=== PATIENT | female | born 1995 | race Caucasian/White ===

== ENCOUNTER 2017-11-03 17:05 | Emergency (ER) | payer OTHER ==
[~2017-11-03] VITALS: Ht 165.1 cm; Wt 77.3 kg
[2017-11-03 17:10] VITALS: TEMP 99.2
[2017-11-03] MEDS ORDERED: ENSKYCE 0.15 MG1 TAB (17:50)
[2017-11-03 17:51] LABS: BASO # 0.1 (0.0-0.2); BASO % 0.3 % (0.0-2.0); EOS # 0.1 (0.0-0.7); EOS % 0.4 % (0-4.0); GRAN % 74.8 % (42.2-75.2); HEMATOCRIT 41.7 % (37.0-47.0); HEMOGLOBIN 14.1 g/dl (12.5-16.0); LYMPH % 17.5 % (20.0-51.0); MEAN CELL VOLUME 89 fl (80.0-100.0); MEAN CORPUSCULAR HEMOGLOBIN 30 pg (27.0-31.0); MEAN CORPUSCULAR HGB CONC 34 g/dl (33.0-37.0); MEAN PLATELET VOLUME 11.7 fl (7.4-10.4); MONO # 1.1 (0.1-0.6); MONO % 6.5 % (1.7-9.3); PLATELET COUNT 261 K/mm3 (130-400); RED BLOOD COUNT 4.67 M/mm3 (4.10-5.30); REDCELL DISTRIBUTION WIDTH-CV 12.3 % (11.5-14.5)
[2017-11-03] MEDS ORDERED: RITALIN 20M20 MG/TAB PO (17:51)
[2017-11-03] MEDS ORDERED: KLONOPIN 0.5MG0.5 MG PO (17:51)
[2017-11-03] MEDS ORDERED: MULTI VITAMINS1 TAB PO (17:51)
[2017-11-03] MEDS ORDERED: ZANTAC 300300 MG PO (17:52)
[2017-11-03] MEDS ORDERED: PROBIOTIC FORMU1 CAP PO (17:52)
[2017-11-03] MEDS ORDERED: CARAFATE 1GM1 G (17:53)
[2017-11-03] MEDS ORDERED: ZOFRAN 4MG T4 MG/TAB PO (17:53)
[2017-11-03] MEDS ORDERED: PROTONIX 40MG T40 MG PO (17:53)
[2017-11-03] MEDS ORDERED: NORCO 325 MG-51 TAB PO (17:54)
[2017-11-03] MEDS ORDERED: PHENERGAN 25 TA25 MG PO (17:54)
[2017-11-03 18:07] LABS: ALBUMIN 4.4 gm/dL (3.5-5.0); BILIRUBIN,TOTAL 0.7 mg/dL (0.0-1.0); C-REACTIVE PROTEIN 2.8 mg/dL (0.0-0.9); CALCIUM 10.1 mg/dL (8.4-10.2); CREATININE, serum 0.63 mg/dL (0.52-1.25); TOTAL PROTEIN 8.2 gm/dL (6.4-8.2)
[2017-11-03 20:07] VITALS: BP 149/103; PULSE 103
== END 2017-11-03 20:07 | disposition home or self-care (01) ==
LOC: COL.ER 17:05
PROVIDERS: Emergency Medicine
DX: R10.11 Right upper quadrant pain (principal); Z90.49 Acquired absence of other specified parts of digestive tract
CPT/HCPCS: J1170; J2765; J7030

== ENCOUNTER 2017-11-06 13:54 | Day surgery (SDC) | payer OTHER ==
[~2017-11-06] VITALS: Ht 165.1 cm; Wt 76.5 kg
[~2017-11-06 13:54] MED LIST: CARAFATE 1GM1 G; ENSKYCE 0.15 MG1 TAB; KLONOPIN 0.5MG0.5 MG PO; MULTI VITAMINS1 TAB PO; NORCO 325 MG-51 TAB PO; PHENERGAN 25 TA25 MG PO; PROBIOTIC FORMU1 CAP PO; PROTONIX 40MG T40 MG PO; RITALIN 20M20 MG/TAB PO; ZANTAC 300300 MG PO; ZOFRAN 4MG T4 MG/TAB PO
[2017-11-06] MEDS ORDERED: ALLEGRA ALLERGY60 MG PO (14:19)
[2017-11-06] MEDS ORDERED: AMBIEN 10MG10 MG PO (14:20)
[2017-11-06] MEDS ORDERED: ENSKYCE 0.15 MG1 TAB (14:20)
[2017-11-06 14:32] VITALS: BP 136/91; PULSE 89; TEMP 97.8
[2017-11-06 15:10] VITALS: BP 142/89; PULSE 86; TEMP 97.8
[2017-11-06 15:25] VITALS: BP 139/82; PULSE 93
[2017-11-06 15:40] VITALS: BP 130/88; PULSE 89
== END 2017-11-06 16:16 | disposition home or self-care (01) ==
LOC: SDCO 13:54
DX: K29.30 Chronic superficial gastritis without bleeding (principal); F90.9 Attention-deficit hyperactivity disorder, unspecified type; Z79.899 Other long term (current) drug therapy; Z83.71 Family history of colonic polyps; Z83.79 Family history of other diseases of the digestive system
CPT/HCPCS: J2405; J2704; J3010; J7030

== ENCOUNTER 2018-01-19 18:59 | Inpatient (IN) | payer OTHER ==
[~2018-01-19] VITALS: Ht 165.1 cm; Wt 70.4 kg
[~2018-01-19 18:59] MED LIST changes: +ALLEGRA ALLERGY60 MG PO; +AMBIEN 10MG10 MG PO; +ENSKYCE 0.15 MG1 TAB PO
[2018-01-19 19:47] LABS: BASO # 0.1 (0.0-0.2); BASO % 0.4 % (0.0-2.0); EOS # 0.1 (0.0-0.7); EOS % 0.5 % (0-4.0); GRAN # 8.1 (1.4-6.5); GRAN % 63.6 % (42.2-75.2); HEMOGLOBIN 12.7 g/dl (12.5-16.0); LYMPH # 3.7 (1.2-3.4); MEAN CELL VOLUME 90 fl (80.0-100.0); MEAN CORPUSCULAR HEMOGLOBIN 30 pg (27.0-31.0); MEAN CORPUSCULAR HGB CONC 33 g/dl (33.0-37.0); MEAN PLATELET VOLUME 10.9 fl (7.4-10.4); MONO # 0.8 (0.1-0.6); MONO % 6.3 % (1.7-9.3); PLATELET COUNT 286 K/mm3 (130-400); RED BLOOD COUNT 4.21 M/mm3 (4.10-5.30); REDCELL DISTRIBUTION WIDTH-CV 14.9 % (11.5-14.5)
[2018-01-19 19:58] LABS: ALBUMIN 4.2 gm/dL (3.5-5.0); BILIRUBIN,TOTAL 0.5 mg/dL (0.0-1.0); C-REACTIVE PROTEIN 1.4 mg/dL (0.0-0.9); CALCIUM 9.2 mg/dL (8.4-10.2); CREATININE, serum 0.51 mg/dL (0.52-1.25); POTASSIUM 3.2 mmol/L (3.4-5.0); TOTAL PROTEIN 7.8 gm/dL (6.4-8.2)
[2018-01-19] MEDS ORDERED: LOMOTIL 0.025 M1 TAB PO (20:13)
[2018-01-19] MEDS ORDERED: EPIPEN 2-PAK1 MG/ML IM (20:14)
[2018-01-19] MEDS ORDERED: COLACE 100100 MG/CAP PO (20:14)
[2018-01-19] MEDS ORDERED: ATROVENTNS0.03% NS (20:14)
[2018-01-19] MEDS ORDERED: MEGACE 40MG40 MG/TAB PO (20:15)
[2018-01-19] MEDS ORDERED: FIBER0.52 GM (20:20)
[2018-01-19] MEDS ORDERED: PROAIR HFA0.09 MG/AC IH (20:20)
[2018-01-19 20:26] LABS: THYROID STIMULATING HORMONE 1.1 uIU/mL (0.465-4.680)
[2018-01-19 20:54] LABS: COLLECTION METHOD CLEAN CATCH
[2018-01-19 21:02] LABS: MUCOUS Present /lpf; PH 5 (5-8); SQUAMOUS EPITHELIAL 0-2 /hpf; URINE APPEARANCE Clear; URINE BACTERIA None Seen /hpf; URINE BILIRUBIN Negative (NEGATIVE); URINE BLOOD 1+ (NEGATIVE); URINE COLOR Yellow; URINE GLUCOSE Negative (NEGATIVE); URINE KETONE Trace (NEGATIVE); URINE LEUKOCYTE ESTERASE Negative (NEGATIVE); URINE NITRATE Negative (NEGATIVE); URINE PROTEIN(semi-quant) Negative (NEGATIVE); URINE UROBILINOGEN Negative (NEGATIVE)
[2018-01-19] MEDS ORDERED: NORVASC 5MG5 MG/TAB PO (21:26)
[2018-01-19] MEDS ORDERED: DESYREL 50MG50 MG PO (22:31)
[2018-01-20] VITALS (7 sets, daily range): BP systolic 113–155; BP diastolic 79–99; PULSE 81–108; TEMP 97.5–98.5
[2018-01-20] MEDS ORDERED: TYLENOL 325MG325 MG PO (01:28)
[2018-01-20 05:26] LABS: BASO % 0.3 % (0.0-2.0); EOS # 0.1 (0.0-0.7); EOS % 0.4 % (0-4.0); GRAN # 8.3 (1.4-6.5); HEMATOCRIT 38.8 % (37.0-47.0); HEMOGLOBIN 12.9 g/dl (12.5-16.0); LYMPH # 3.1 (1.2-3.4); LYMPH % 24.7 % (20.0-51.0); MEAN CELL VOLUME 90 fl (80.0-100.0); MEAN CORPUSCULAR HEMOGLOBIN 30 pg (27.0-31.0); MEAN CORPUSCULAR HGB CONC 33 g/dl (33.0-37.0); MEAN PLATELET VOLUME 11.1 fl (7.4-10.4); MONO # 0.9 (0.1-0.6); MONO % 7.3 % (1.7-9.3); PLATELET COUNT 264 K/mm3 (130-400); RED BLOOD COUNT 4.33 M/mm3 (4.10-5.30); REDCELL DISTRIBUTION WIDTH-CV 14.7 % (11.5-14.5)
[2018-01-20 05:33] LABS: CALCIUM 8.7 mg/dL (8.4-10.2); CREATININE, serum 0.41 mg/dL (0.52-1.25); MAGNESIUM 1.9 mg/dL (1.6-2.3); POTASSIUM 3.1 mmol/L (3.4-5.0)
[2018-01-20 10:30] LABS: CREATINE KINASE 20 U/L (30-135)
[2018-01-20 10:45] LABS: AMYLASE 67 U/L (30-110); LIPASE 35 U/L (23-300)
[2018-01-20 11:06] LABS: FERRITIN 113 ng/mL (6-137)
[2018-01-20 17:12] LABS: FOLATE (FOLIC ACID) 14.5 ng/mL (7.0-31.4)
[2018-01-20 17:59] LABS: TRICYCLIC ANTIDEPRESS URINE NEGATIVE
[2018-01-21] VITALS (128 sets, daily range): BP systolic 122–130; BP diastolic 78–88; PULSE 83–101; TEMP 98.4–99.9; O2SAT 90–100
[2018-01-21 05:20] LABS: BASO % 0.4 % (0.0-2.0); EOS # 0.1 (0.0-0.7); EOS % 0.9 % (0-4.0); GRAN % 60.2 % (42.2-75.2); HEMATOCRIT 37.6 % (37.0-47.0); HEMOGLOBIN 12.9 g/dl (12.5-16.0); LYMPH # 2.9 (1.2-3.4); LYMPH % 29.5 % (20.0-51.0); MEAN CELL VOLUME 90 fl (80.0-100.0); MEAN CORPUSCULAR HEMOGLOBIN 31 pg (27.0-31.0); MEAN CORPUSCULAR HGB CONC 34 g/dl (33.0-37.0); MEAN PLATELET VOLUME 11.1 fl (7.4-10.4); MONO # 0.9 (0.1-0.6); MONO % 8.7 % (1.7-9.3); PLATELET COUNT 268 K/mm3 (130-400); REDCELL DISTRIBUTION WIDTH-CV 14.9 % (11.5-14.5)
[2018-01-21 05:33] LABS: ALBUMIN 3.8 gm/dL (3.5-5.0); BILIRUBIN,TOTAL 0.5 mg/dL (0.0-1.0); CALCIUM 9.1 mg/dL (8.4-10.2); CREATININE, serum 0.52 mg/dL (0.52-1.25); POTASSIUM 3.5 mmol/L (3.4-5.0)
[2018-01-21] MEDS ORDERED: CARDURA 1MG1 MG PO (09:17)
[2018-01-21] MEDS ORDERED: LOPRESSOR 550 MG/TAB PO (09:18)
[2018-01-22 14:43] LABS: ALBUMIN FRACTION 4.2 g/dL (2.6-4.5); ALPHA 1 FRACTION 0.5 g/dL (0.3-0.5); ALPHA 1 PERCENT 6.7 % (3.4-8.3); ALPHA 2 FRACTION 1.2 g/dL (0.6-1.2); ALPHA 2 PERCENT 15.1 % (8.4-17.5); BETA 1 FRACTION 0.5 g/dL (0.4-0.6); BETA 2 FRACTION 0.5 g/dL (0.2-0.5); IEPS GAMMA FRACTION 1.1 g/dL (0.4-1.7); IEPS GAMMA PERCENTAGE 13.2 % (8.1-23.0)
[2018-01-23 02:36] LABS: RPR (VDRL) Non-reactive (())
[2018-01-23 15:02] LABS: .COPPER,S 1.92 mcg/mL (())
[2018-01-23 22:18] LABS: C-ANCA 10 U/mL (0-99)
[2018-01-24 07:43] LABS: VITAMIN B1 209 nmol/L (70-180)
[2018-01-24 13:53] LABS: VITAMIN D, 1,25 DIHYDROXY 100 pg/mL (18-78)
== END 2018-01-21 11:17 | disposition home or self-care (01) | DRG 305 ==
LOC: COL.ER 18:59 → ICU 22:16 → COL.ER 22:16 → ICU 22:16
PROVIDERS: Family Medicine; Hospitalist; Internal Medicine; Nurse Practitioner; Psychiatry & Neurology Neurology
DX: I16.0 Hypertensive urgency (principal); I10 Essential (primary) hypertension; E87.6 Hypokalemia; E16.2 Hypoglycemia, unspecified; E28.2 Polycystic ovarian syndrome; R31.9 Hematuria, unspecified
CPT/HCPCS: OP; 99223-AI; 99239; J1170; J2405; J7030; J7050

== ENCOUNTER → 2018-01-23 | Outpatient (CLI) | payer OTHER ==
[~2018-01-23] MED LIST changes: +ATROVENTNS0.03% NS; +CARDURA 1MG1 MG PO; +COLACE 100100 MG/CAP PO; +DESYREL 50MG50 MG PO; +EPIPEN 2-PAK1 MG/ML IM; +FIBER0.52 GM; +LOMOTIL 0.025 M1 TAB PO; +LOPRESSOR 550 MG/TAB PO; +MEGACE 40MG40 MG/TAB PO; +NORVASC 5MG5 MG/TAB PO; +PROAIR HFA0.09 MG/AC IH; +TYLENOL 325MG325 MG PO
== END ==
LOC: COL.LAB 13:26
PROVIDERS: Hospitalist
DX: I16.0 Hypertensive urgency (principal)

== ENCOUNTER → 2019-02-04 | Outpatient (CLI) | payer BC ==
[2019-02-04 12:11] LABS: COLLECTION METHOD CLEAN CATCH
[2019-02-04 12:21] LABS: PH 7 (5-8); SQUAMOUS EPITHELIAL 0-2 /hpf; URINE APPEARANCE Clear; URINE BACTERIA Rare /hpf; URINE BILIRUBIN Negative (NEGATIVE); URINE BLOOD Negative (NEGATIVE); URINE COLOR Straw; URINE GLUCOSE Negative (NEGATIVE); URINE KETONE Negative (NEGATIVE); URINE LEUKOCYTE ESTERASE Trace (NEGATIVE); URINE NITRATE Negative (NEGATIVE); URINE PROTEIN(semi-quant) Negative (NEGATIVE); URINE RBC 0-2 /hpf; URINE UROBILINOGEN Negative (NEGATIVE)
[2019-02-04 12:22] LABS: HEMATOCRIT 42.7 % (37.0-47.0); MEAN CELL VOLUME 91 fl (80.0-100.0); MEAN CORPUSCULAR HEMOGLOBIN 30 pg (27.0-31.0); MEAN CORPUSCULAR HGB CONC 33 g/dl (33.0-37.0); MEAN PLATELET VOLUME 11.2 fl (7.4-10.4); PLATELET COUNT 245 K/mm3 (130-400); RED BLOOD COUNT 4.71 M/mm3 (4.10-5.30); REDCELL DISTRIBUTION WIDTH-CV 13.1 % (11.5-14.5)
[2019-02-04 12:28] LABS: CALCIUM 9.7 mg/dL (8.4-10.2); CREATININE, serum 0.75 (0.52-1.25)
== END ==
LOC: COL.LAB 11:48
DX: Z01.812 Encounter for preprocedural laboratory examination (principal); Z42.1 Encounter for breast reconstruction following mastectomy; Z01.811 Encounter for preprocedural respiratory examination; D05.11 Intraductal carcinoma in situ of right breast; Z80.3 Family history of malignant neoplasm of breast

== ENCOUNTER → 2019-03-21 | Outpatient (CLI) | payer BC | LOC: COL.LAB 14:47 | DX: Z15.01 Genetic susceptibility to malignant neoplasm of breast (principal) ==

== ENCOUNTER → 2019-03-26 | Outpatient (CLI) | payer BC | LOC: COL.RAD 11:41 | DX: L76.34 Postprocedural seroma of skin and subcutaneous tissue following other procedure (principal); Z90.13 Acquired absence of bilateral breasts and nipples ==

== ENCOUNTER → 2019-04-03 | Outpatient (CLI) | payer BC | LOC: COL.RAD 07:36 | DX: R10.9 Unspecified abdominal pain (principal); Z85.3 Personal history of malignant neoplasm of breast; Z90.13 Acquired absence of bilateral breasts and nipples; Z90.49 Acquired absence of other specified parts of digestive tract; Z90.89 Acquired absence of other organs | CPT/HCPCS: Q9967 ==

== ENCOUNTER 2019-04-12 20:51 | Emergency (ER) | payer BC ==
[~2019-04-12] VITALS: Ht 165.1 cm; Wt 75.0 kg
[2019-04-12 20:55] VITALS: TEMP 98.5
[2019-04-12 21:48] LABS: BASO % 0.5 % (0.0-2.0); EOS # 0.1 (0.0-0.7); EOS % 0.9 % (0-4.0); GRAN # 4.4 (1.4-6.5); GRAN % 51.1 % (42.2-75.2); HEMOGLOBIN 13.1 g/dl (12.5-16.0); LYMPH # 3.4 (1.2-3.4); LYMPH % 39.2 % (20.0-51.0); MEAN CELL VOLUME 88 fl (80.0-100.0); MEAN CORPUSCULAR HEMOGLOBIN 29 pg (27.0-31.0); MEAN CORPUSCULAR HGB CONC 33 g/dl (33.0-37.0); MEAN PLATELET VOLUME 10.8 fl (7.4-10.4); MONO # 0.7 (0.1-0.6); PLATELET COUNT 274 K/mm3 (130-400); RED BLOOD COUNT 4.54 M/mm3 (4.10-5.30); REDCELL DISTRIBUTION WIDTH-CV 13.5 % (11.5-14.5)
[2019-04-12 22:08] LABS: ALBUMIN 4.4 gm/dL (3.5-5.0); BILIRUBIN,TOTAL 0.2 mg/dL (0.0-1.0); CALCIUM 9.5 mg/dL (8.4-10.2); CREATININE, serum 0.69 (0.52-1.25); POTASSIUM 4.1 mmol/L (3.4-5.0); TOTAL PROTEIN 7.7 gm/dL (6.4-8.2)
[2019-04-12 23:56] LABS: COLLECTION METHOD CLEAN CATCH
[2019-04-13 00:01] LABS: MUCOUS Present /lpf; PH 5 (5-8); SQUAMOUS EPITHELIAL 0-2 /hpf; URINE APPEARANCE Hazy; URINE BACTERIA None Seen /hpf; URINE BILIRUBIN Negative (NEGATIVE); URINE BLOOD 1+ (NEGATIVE); URINE COLOR Yellow; URINE GLUCOSE Negative (NEGATIVE); URINE KETONE Negative (NEGATIVE); URINE LEUKOCYTE ESTERASE Negative (NEGATIVE); URINE NITRATE Negative (NEGATIVE); URINE PROTEIN(semi-quant) Negative (NEGATIVE); URINE UROBILINOGEN Negative (NEGATIVE)
[2019-04-13] MEDS ORDERED: NORCO 325 MG-51 TAB PO (00:44)
[2019-04-13] MEDS ORDERED: CEPHALEXIN500 M1 PO (00:44)
[2019-04-13] MEDS ORDERED: ZOFRAN ODT4 MG PO (00:44)
[2019-04-13 01:26] VITALS: BP 133/91; PULSE 85
== END 2019-04-13 02:00 | disposition home or self-care (01) ==
LOC: COL.ER 20:51
PROVIDERS: Emergency Medicine; Physician Assistant
DX: R10.11 Right upper quadrant pain (principal); R10.12 Left upper quadrant pain; I10 Essential (primary) hypertension; J45.909 Unspecified asthma, uncomplicated
CPT/HCPCS: J2405; J3010; J7030; Q9967

== ENCOUNTER 2019-04-18 19:12 | Emergency (ER) | payer BC ==
[~2019-04-18] VITALS: Ht 165.1 cm; Wt 75.0 kg
[~2019-04-18 19:12] MED LIST changes: +CEPHALEXIN500 M1 PO; -FIBER0.52 GM; +FIBER0.52 GM PO; +ZOFRAN ODT4 MG PO
[2019-04-18 19:16] VITALS: BP 145/89; TEMP 99.1
[2019-04-18] MEDS ORDERED: COMPAZINE 110 MG/TAB PO (19:29)
[2019-04-18] MEDS ORDERED: LO-ZUMANDIMINE1 EACH PO (19:30)
[2019-04-18] MEDS ORDERED: ULTRAM 50MG TAB50 MG PO (19:31)
[2019-04-18] MEDS ORDERED: VALIUM 5MG T5 MG/TAB PO (19:31)
[2019-04-18] MEDS ORDERED: ROBAXIN 50500 MG/TAB PO (19:32)
[2019-04-18] MEDS ORDERED: TOPAMAX50 MG PO (19:33)
[2019-04-18] MEDS ORDERED: ZANAFLEX CAPSULE2 MG PO (19:34)
[2019-04-18] MEDS ORDERED: CELEBREX 200MG200 MG PO (19:35)
[2019-04-18] MEDS ORDERED: AMBIEN CR 12.12.5 MG PO (19:36)
[2019-04-18] MEDS ORDERED: LINZESS72 MCG PO (19:36)
[2019-04-18] MEDS ORDERED: PRIL40 PO (19:37)
[2019-04-18] MEDS ORDERED: PROAIR HFA0.09 MG/AC IH (19:37)
[2019-04-18] MEDS ORDERED: PAMELOR 10MG10 MG PO (19:37)
[2019-04-18] MEDS ORDERED: NATURAL MAGNES200 MG PO (19:39)
[2019-04-18 20:05] LABS: BASO % 0.5 % (0.0-2.0); EOS # 0.1 (0.0-0.7); EOS % 0.6 % (0-4.0); GRAN % 59.3 % (42.2-75.2); HEMATOCRIT 41.2 % (37.0-47.0); HEMOGLOBIN 13.7 g/dl (12.5-16.0); LYMPH # 2.7 (1.2-3.4); LYMPH % 31.9 % (20.0-51.0); MEAN CELL VOLUME 88 fl (80.0-100.0); MEAN CORPUSCULAR HEMOGLOBIN 29 pg (27.0-31.0); MEAN CORPUSCULAR HGB CONC 33 g/dl (33.0-37.0); MEAN PLATELET VOLUME 10.7 fl (7.4-10.4); MONO # 0.6 (0.1-0.6); MONO % 7.3 % (1.7-9.3); PLATELET COUNT 283 K/mm3 (130-400); RED BLOOD COUNT 4.68 M/mm3 (4.10-5.30); REDCELL DISTRIBUTION WIDTH-CV 13.4 % (11.5-14.5)
[2019-04-18 20:15] LABS: ALBUMIN 4.6 gm/dL (3.5-5.0); BILIRUBIN,TOTAL 0.2 mg/dL (0.0-1.0); C-REACTIVE PROTEIN 0.9 mg/dL (0.0-0.9); CALCIUM 9.2 mg/dL (8.4-10.2); CREATININE, serum 0.68 (0.52-1.25); POTASSIUM 3.9 mmol/L (3.4-5.0); TOTAL PROTEIN 8.1 gm/dL (6.4-8.2)
[2019-04-18 21:25] VITALS: PULSE 69
== END 2019-04-18 21:25 | disposition home or self-care (01) ==
LOC: COL.ER 19:12
PROVIDERS: Emergency Medicine
DX: G89.29 Other chronic pain (principal); R10.9 Unspecified abdominal pain; G43.909 Migraine, unspecified, not intractable, without status migrainosus; Z88.8 Allergy status to other drugs, medicaments and biological substances
CPT/HCPCS: J0780; J1200; J7030

== ENCOUNTER → 2019-04-24 | Outpatient (CLI) | payer BC ==
[~2019-04-24] MED LIST changes: +AMBIEN CR 12.12.5 MG PO; +CELEBREX 200MG200 MG PO; +COMPAZINE 110 MG/TAB PO; +LINZESS72 MCG PO; +LO-ZUMANDIMINE1 EACH PO; +NATURAL MAGNES200 MG PO; +PAMELOR 10MG10 MG PO; +PRIL40 PO; +ROBAXIN 50500 MG/TAB PO; +TOPAMAX50 MG PO; +ULTRAM 50MG TAB50 MG PO; +VALIUM 5MG T5 MG/TAB PO; +ZANAFLEX CAPSULE2 MG PO
== END ==
LOC: COL.RAD 12:39
DX: R22.2 Localized swelling, mass and lump, trunk (principal)

== ENCOUNTER 2019-05-18 15:51 | Emergency (ER) | payer BC ==
[~2019-05-18] VITALS: Ht 165.1 cm; Wt 75.0 kg
[2019-05-18 17:58] LABS: BASO % 0.4 % (0.0-2.0); EOS # 0.1 (0.0-0.7); EOS % 1.5 % (0-4.0); GRAN # 4.4 (1.4-6.5); GRAN % 56.4 % (42.2-75.2); HEMOGLOBIN 10.3 g/dl (12.5-16.0); LYMPH # 2.6 (1.2-3.4); LYMPH % 32.5 % (20.0-51.0); MEAN CELL VOLUME 90 fl (80.0-100.0); MEAN CORPUSCULAR HEMOGLOBIN 29 pg (27.0-31.0); MEAN CORPUSCULAR HGB CONC 32 g/dl (33.0-37.0); MEAN PLATELET VOLUME 10.7 fl (7.4-10.4); MONO # 0.7 (0.1-0.6); MONO % 8.8 % (1.7-9.3); PLATELET COUNT 236 K/mm3 (130-400); RED BLOOD COUNT 3.56 M/mm3 (4.10-5.30)
[2019-05-18 18:11] LABS: ALBUMIN 3.4 gm/dL (3.5-5.0); BILIRUBIN,TOTAL 0.3 mg/dL (0.0-1.0); C-REACTIVE PROTEIN 3.7 mg/dL (0.0-0.9); CALCIUM 8.6 mg/dL (8.4-10.2); CREATININE, serum 0.51 (0.52-1.25); POTASSIUM 3.8 mmol/L (3.4-5.0); TOTAL PROTEIN 6.2 gm/dL (6.4-8.2)
[2019-05-18 18:14] LABS: COLLECTION METHOD CLEAN CATCH
[2019-05-18 18:20] LABS: PH 7 (5-8); SQUAMOUS EPITHELIAL 0-2 /hpf; URINE APPEARANCE Clear; URINE BACTERIA None Seen /hpf; URINE BILIRUBIN Negative (NEGATIVE); URINE BLOOD Negative (NEGATIVE); URINE COLOR Straw; URINE GLUCOSE Negative (NEGATIVE); URINE KETONE Negative (NEGATIVE); URINE LEUKOCYTE ESTERASE Negative (NEGATIVE); URINE NITRATE Negative (NEGATIVE); URINE PROTEIN(semi-quant) Negative (NEGATIVE); URINE RBC 0-2 /hpf; URINE UROBILINOGEN Negative (NEGATIVE)
[2019-05-18] MEDS ORDERED: DILAUDID 2MG TAB2 MG PO (19:10)
[2019-05-18] MEDS ORDERED: TYLENOL 500MG500 MG PO (19:19)
[2019-05-18 19:21] VITALS: TEMP 97
[2019-05-18] MEDS ORDERED: ROXICODONE 55 MG/TAB PO (20:55)
[2019-05-18 22:04] VITALS: BP 114/77; PULSE 84
== END 2019-05-18 22:09 | disposition home or self-care (01) ==
LOC: COL.ER 15:51
PROVIDERS: Emergency Medicine
DX: R10.9 Unspecified abdominal pain (principal); G89.28 Other chronic postprocedural pain
CPT/HCPCS: J0780; J1170; J1885; J7030

== ENCOUNTER 2019-06-17 16:42 | Emergency (ER) | payer BC ==
[~2019-06-17] VITALS: Ht 165.1 cm; Wt 75.0 kg
[~2019-06-17 16:42] MED LIST changes: +DILAUDID 2MG TAB2 MG PO; +ROXICODONE 55 MG/TAB PO; +TYLENOL 500MG500 MG PO
[2019-06-17 16:51] VITALS: TEMP 98.6
[2019-06-17 17:58] LABS: COLLECTION METHOD CLEAN CATCH
[2019-06-17 18:04] LABS: BASO % 0.5 % (0.0-2.0); EOS # 0.1 (0.0-0.7); EOS % 0.9 % (0-4.0); GRAN # 5.4 (1.4-6.5); GRAN % 62.6 % (42.2-75.2); HEMATOCRIT 39.6 % (37.0-47.0); HEMOGLOBIN 12.8 g/dl (12.5-16.0); LYMPH # 2.3 (1.2-3.4); LYMPH % 26.5 % (20.0-51.0); MEAN CELL VOLUME 89 fl (80.0-100.0); MEAN CORPUSCULAR HEMOGLOBIN 29 pg (27.0-31.0); MEAN CORPUSCULAR HGB CONC 32 g/dl (33.0-37.0); MEAN PLATELET VOLUME 11.2 fl (7.4-10.4); MONO # 0.8 (0.1-0.6); MONO % 9.3 % (1.7-9.3); PLATELET COUNT 308 K/mm3 (130-400); RED BLOOD COUNT 4.44 M/mm3 (4.10-5.30); REDCELL DISTRIBUTION WIDTH-CV 14.4 % (11.5-14.5)
[2019-06-17 18:07] LABS: MUCOUS Present /lpf; PH 6 (5-8); SQUAMOUS EPITHELIAL 0-2 /hpf; URINE APPEARANCE Clear; URINE BACTERIA None Seen /hpf; URINE BILIRUBIN Negative (NEGATIVE); URINE BLOOD 1+ (NEGATIVE); URINE COLOR Yellow; URINE GLUCOSE Negative (NEGATIVE); URINE KETONE Negative (NEGATIVE); URINE LEUKOCYTE ESTERASE Negative (NEGATIVE); URINE NITRATE Negative (NEGATIVE); URINE PROTEIN(semi-quant) Negative (NEGATIVE); URINE UROBILINOGEN Negative (NEGATIVE)
[2019-06-17 18:13] LABS: ALBUMIN 4.5 gm/dL (3.5-5.0); BILIRUBIN,TOTAL 0.2 mg/dL (0.0-1.0); CREATININE, serum 0.67 (0.52-1.25); POTASSIUM 4.1 mmol/L (3.4-5.0); TOTAL PROTEIN 7.7 gm/dL (6.4-8.2)
[2019-06-17] MEDS ORDERED: ZOFRAN 4MG T4 MG/TAB PO (20:13)
[2019-06-17 20:43] VITALS: BP 116/82; PULSE 78
[2019-06-18] MEDS ORDERED: ADDERALL20 MG PO (14:12)
[2019-06-18] MEDS ORDERED: VITAMIND3 5000 PO (14:13)
[2019-06-20] MEDS ORDERED: EMGALITY120 MG/1 M SQ (12:15)
[2019-06-20] MEDS ORDERED: YAZ 28 3 MG-0.01 TAB PO (12:16)
[2019-06-20] MEDS ORDERED: FIORICET 325 MG1 TA1 PO (12:16)
== END 2019-06-17 20:43 | disposition home or self-care (01) ==
LOC: COL.ER 16:42
PROVIDERS: Emergency Medicine
DX: R42 Dizziness and giddiness (principal); R11.0 Nausea; R53.83 Other fatigue; G43.909 Migraine, unspecified, not intractable, without status migrainosus; Z90.89 Acquired absence of other organs
CPT/HCPCS: J0780; J1200; J1885; J2405; J7030

== ENCOUNTER → 2019-06-20 | Outpatient (CLI) | payer BC ==
[2019-06-20] VITALS (9 sets, daily range): BP systolic 135–142; BP diastolic 89–106; PULSE 76–104
[~2019-06-20] VITALS: Ht 165.1 cm; Wt 77.2 kg
[~2019-06-20] MED LIST changes: +ADDERALL20 MG PO; +EMGALITY120 MG/1 M SQ; +FIORICET 325 MG1 TA1 PO; +VITAMIND3 5000 PO; +YAZ 28 3 MG-0.01 TAB PO
[2019-06-20 15:54] LABS: GLUCOSE,CSF 51 mg/dL (40-70); TOTAL PROTEIN,CSF 39 mg/dL (15-45)
[2019-06-20 16:10] LABS: CSF APPEARANCE CLEAR; CSF COLOR COLORLESS; CSF RBC 0 /mm3 (0-0)
[2019-06-20 16:35] LABS: CSF MONONUCLEAR 100 % (70-100); CSF POLYMORPHONUCLEAR 0 % (0-6)
== END ==
LOC: COL.RAD 12:06
PROVIDERS: Nurse Practitioner
DX: G43.909 Migraine, unspecified, not intractable, without status migrainosus (principal)

== ENCOUNTER 2019-06-21 17:23 | Emergency (ER) | payer BC ==
[~2019-06-21] VITALS: Ht 165.1 cm; Wt 75.0 kg
[2019-06-21 18:06] VITALS: TEMP 98.5
[2019-06-21 20:25] VITALS: BP 120/89; PULSE 64
== END 2019-06-21 20:34 | disposition home or self-care (01) ==
LOC: COL.ER 17:23
DX: G97.1 Other reaction to spinal and lumbar puncture (principal); G43.909 Migraine, unspecified, not intractable, without status migrainosus; E28.2 Polycystic ovarian syndrome; Z90.89 Acquired absence of other organs; Z90.13 Acquired absence of bilateral breasts and nipples
CPT/HCPCS: J0780; J1200; J1885; J7030

== ENCOUNTER → 2019-06-28 | Outpatient (CLI) | payer BC | LOC: COL.RAD 07:17 | DX: G43.909 Migraine, unspecified, not intractable, without status migrainosus (principal) | CPT/HCPCS: A9585 ==

== ENCOUNTER → 2019-07-10 | Outpatient (CLI) | payer BC | LOC: COL.RAD 07:50 | DX: R19.07 Generalized intra-abdominal and pelvic swelling, mass and lump (principal); Z90.49 Acquired absence of other specified parts of digestive tract ==

== ENCOUNTER 2019-08-16 08:00 | Outpatient (RCR) | payer BC | END 2019-11-14 | disposition home or self-care (01) | LOC: MKS.ESL.PT | DX: Z90.13 Acquired absence of bilateral breasts and nipples (principal); Z98.890 Other specified postprocedural states; Z15.01 Genetic susceptibility to malignant neoplasm of breast ==

== ENCOUNTER → 2019-10-28 | Outpatient (CLI) | payer BC | LOC: COL.RAD 07:16 | DX: R10.12 Left upper quadrant pain (principal); Z90.49 Acquired absence of other specified parts of digestive tract ==

== ENCOUNTER 2019-11-08 08:51 | Outpatient (RCR) | payer BC ==
[2020-01-09] MEDS ORDERED: ADDERALL20 MG PO (17:44)
[2020-01-09] MEDS ORDERED: MASON NATURAL2000 IU PO (17:44)
[2020-01-09] MEDS ORDERED: MAG-OX 400400 MG/TAB PO (17:45)
[2020-01-09] MEDS ORDERED: ULTRAM 50MG TAB50 MG PO (17:45)
[2020-01-09] MEDS ORDERED: PROBIOTIC-MAJOR PO (17:45)
[2020-01-09] MEDS ORDERED: ALLEGRA 180MG180 MG PO (17:46)
[2020-01-09] MEDS ORDERED: AMBIEN CR 12.12.5 MG PO (17:46)
[2020-01-09] MEDS ORDERED: DESYREL DIVIDO150 M1 PO (17:46)
[2020-01-09] MEDS ORDERED: RELPAX20 MG PO (17:47)
[2020-01-09] MEDS ORDERED: NURTEC ODT75 MG PO (17:47)
[2020-01-09] MEDS ORDERED: AJOVY225 MG/1.5 SQ (17:47)
[2020-01-09] MEDS ORDERED: CLEOCIN HC150 MG/CAP PO (17:48)
[2020-01-09] MEDS ORDERED: BIAXIN 250MG T250 M1 PO (17:48)
== END 2020-02-06 | disposition still patient (30) ==
LOC: MKS.ESL.PT
DX: I89.0 Lymphedema, not elsewhere classified (principal); M79.89 Other specified soft tissue disorders

== ENCOUNTER → 2019-11-22 | Outpatient (CLI) | payer BC ==
[2019-11-22 08:43] LABS: COLLECTION METHOD CLEAN CATCH
[2019-11-22 08:49] LABS: HEMATOCRIT 41.8 % (37.0-47.0); MEAN CELL VOLUME 91 fl (80.0-100.0); MEAN CORPUSCULAR HEMOGLOBIN 28 pg (27.0-31.0); MEAN CORPUSCULAR HGB CONC 31 g/dl (33.0-37.0); PLATELET COUNT 247 K/mm3 (130-400); RED BLOOD COUNT 4.62 M/mm3 (4.10-5.30); REDCELL DISTRIBUTION WIDTH-CV 15.8 % (11.5-14.5)
[2019-11-22 08:51] LABS: MUCOUS Present /lpf; PH 5 (5-8); SQUAMOUS EPITHELIAL 0-2 /hpf; URINE APPEARANCE Clear; URINE BACTERIA Rare /hpf; URINE BILIRUBIN Negative (NEGATIVE); URINE BLOOD 1+ (NEGATIVE); URINE COLOR Yellow; URINE GLUCOSE Negative (NEGATIVE); URINE KETONE Negative (NEGATIVE); URINE LEUKOCYTE ESTERASE Negative (NEGATIVE); URINE NITRATE Negative (NEGATIVE); URINE PROTEIN(semi-quant) Negative (NEGATIVE); URINE RBC 0-2 /hpf; URINE UROBILINOGEN Negative (NEGATIVE)
[2019-11-22 08:59] LABS: CALCIUM 9.5 mg/dL (8.4-10.2); CREATININE, serum 0.82 (0.52-1.25)
== END ==
LOC: COL.LAB 07:09 → COL.CARD 07:09
DX: Z01.810 Encounter for preprocedural cardiovascular examination (principal); Z01.811 Encounter for preprocedural respiratory examination; N65.0 Deformity of reconstructed breast; N65.1 Disproportion of reconstructed breast; Z90.13 Acquired absence of bilateral breasts and nipples; Z15.01 Genetic susceptibility to malignant neoplasm of breast; L90.5 Scar conditions and fibrosis of skin

== ENCOUNTER → 2019-11-28 | Outpatient (CLI) | payer BC | LOC: ZCOL.LAB 18:10 | DX: Z01.818 Encounter for other preprocedural examination (principal); Z20.828 Contact with and (suspected) exposure to other viral communicable diseases ==

== ENCOUNTER → 2020-01-06 | Outpatient (CLI) | payer BC ==
[~2020-01-06] MED LIST changes: +AJOVY225 MG/1.5 SQ; +ALLEGRA 180MG180 MG PO; +BIAXIN 250MG T250 M1 PO; +CLEOCIN HC150 MG/CAP PO; +DESYREL DIVIDO150 M1 PO; +MAG-OX 400400 MG/TAB PO; +MASON NATURAL2000 IU PO; +NURTEC ODT75 MG PO; +PROBIOTIC-MAJOR PO; +RELPAX20 MG PO
== END ==
LOC: COL.RAD 08:46
DX: M25.512 Pain in left shoulder (principal)
CPT/HCPCS: J3301; Q9967

== ENCOUNTER 2020-01-09 16:31 | Emergency (ER) | payer BC ==
[~2020-01-09] VITALS: Ht 165.1 cm; Wt 72.3 kg
[~2020-01-09 16:31] MED LIST changes: -AJOVY225 MG/1.5 SQ; -ALLEGRA 180MG180 MG PO; -BIAXIN 250MG T250 M1 PO; -CLEOCIN HC150 MG/CAP PO; -DESYREL DIVIDO150 M1 PO; -MAG-OX 400400 MG/TAB PO; -MASON NATURAL2000 IU PO; -NURTEC ODT75 MG PO; -PROBIOTIC-MAJOR PO; -RELPAX20 MG PO
[2020-01-09 16:47] VITALS: BP 145/116; TEMP 99.4
[2020-01-09] MEDS ORDERED: MASON NATURAL2000 IU PO (17:44)
[2020-01-09] MEDS ORDERED: ADDERALL20 MG PO (17:44)
[2020-01-09] MEDS ORDERED: MAG-OX 400400 MG/TAB PO (17:45)
[2020-01-09] MEDS ORDERED: ULTRAM 50MG TAB50 MG PO (17:45)
[2020-01-09] MEDS ORDERED: PROBIOTIC-MAJOR PO (17:45)
[2020-01-09] MEDS ORDERED: ALLEGRA 180MG180 MG PO (17:46)
[2020-01-09] MEDS ORDERED: AMBIEN CR 12.12.5 MG PO (17:46)
[2020-01-09] MEDS ORDERED: DESYREL DIVIDO150 M1 PO (17:46)
[2020-01-09] MEDS ORDERED: NURTEC ODT75 MG PO (17:47)
[2020-01-09] MEDS ORDERED: RELPAX20 MG PO (17:47)
[2020-01-09] MEDS ORDERED: AJOVY225 MG/1.5 SQ (17:47)
[2020-01-09] MEDS ORDERED: BIAXIN 250MG T250 M1 PO (17:48)
[2020-01-09] MEDS ORDERED: CLEOCIN HC150 MG/CAP PO (17:48)
[2020-01-09 18:18] LABS: ALANINE AMINOTRANSFERASE 26 U/L (4-34); ALBUMIN 4.6 gm/dL (3.5-5.0); ALKALINE PHOSPHATASE 57 U/L (50-136); ANION GAP 10 mmol/L (7-16); AST,SGOT 21 U/L (15-37); BILIRUBIN,TOTAL 0.4 mg/dL (0.0-1.0); BLOOD UREA NITROGEN 13 mg/dL (7-17); CALCIUM 9.6 mg/dL (8.4-10.2); CARBON DIOXIDE 23 mmol/L (22-30); CHLORIDE 103 mmol/L (98-107); CREATININE, serum 0.62 (0.52-1.25); GLUCOSE 114 mg/dL (74-106); POTASSIUM 4.1 mmol/L (3.4-5.0); SODIUM 137 mmol/L (137-145); TOTAL PROTEIN 8.2 gm/dL (6.4-8.2)
[2020-01-09 18:28] LABS: C-REACTIVE PROTEIN < 0.5 mg/dL (0.0-0.9)
[2020-01-09 18:35] LABS: BASO % 0.1 % (0.0-2.0); GRAN # 5.6 (1.4-6.5); HEMATOCRIT 41.5 % (37.0-47.0); HEMOGLOBIN 13.7 g/dl (12.5-16.0); LYMPH # 1.4 (1.2-3.4); LYMPH % 17.5 % (20.0-51.0); MEAN CELL VOLUME 89 fl (80.0-100.0); MEAN CORPUSCULAR HEMOGLOBIN 30 pg (27.0-31.0); MEAN CORPUSCULAR HGB CONC 33 g/dl (33.0-37.0); MEAN PLATELET VOLUME 11.2 fl (7.4-10.4); MONO # 0.9 (0.1-0.6); MONO % 11.3 % (1.7-9.3); PLATELET COUNT 333 K/mm3 (130-400); RED BLOOD COUNT 4.64 M/mm3 (4.10-5.30); REDCELL DISTRIBUTION WIDTH-CV 14.7 % (11.5-14.5)
[2020-01-09 19:14] LABS: ERYTHROCYTE SEDIMENTATION RATE 4 mm/hr (0-20)
[2020-01-09 20:13] VITALS: PULSE 89
== END 2020-01-09 20:26 | disposition home or self-care (01) ==
LOC: COL.ER 16:31
PROVIDERS: Emergency Medicine
DX: M79.622 Pain in left upper arm (principal); M25.512 Pain in left shoulder; Z85.3 Personal history of malignant neoplasm of breast
CPT/HCPCS: J2270

== ENCOUNTER → 2020-02-05 | Outpatient (CLI) | payer BC ==
[~2020-02-05] MED LIST changes: +AJOVY225 MG/1.5 SQ; +ALLEGRA 180MG180 MG PO; +BIAXIN 250MG T250 M1 PO; +CLEOCIN HC150 MG/CAP PO; +DESYREL DIVIDO150 M1 PO; +MAG-OX 400400 MG/TAB PO; +MASON NATURAL2000 IU PO; +NURTEC ODT75 MG PO; +PROBIOTIC-MAJOR PO; +RELPAX20 MG PO
== END ==
LOC: COL.RAD
DX: R13.12 Dysphagia, oropharyngeal phase (principal)

== ENCOUNTER 2020-03-04 09:18 | Outpatient (RCR) | payer BC | END 2020-03-04 11:29 | disposition home or self-care (01) | LOC: MKS.ESL.PT 09:18 | DX: M75.02 Adhesive capsulitis of left shoulder (principal) ==

== ENCOUNTER → 2020-03-09 | Outpatient (CLI) | payer BC | LOC: MC.RAD 07:27 | DX: N60.02 Solitary cyst of left breast (principal); L76.82 Other postprocedural complications of skin and subcutaneous tissue; Z90.13 Acquired absence of bilateral breasts and nipples; Z98.890 Other specified postprocedural states ==

== ENCOUNTER → 2020-03-24 | Outpatient (CLI) | payer BC | LOC: COL.RAD 12:40 | DX: R13.14 Dysphagia, pharyngoesophageal phase (principal) ==

== ENCOUNTER 2020-04-13 09:45 | Outpatient (RCR) | payer BC | END 2020-04-29 | disposition home or self-care (01) | LOC: WSST | DX: R13.12 Dysphagia, oropharyngeal phase (principal); R49.0 Dysphonia ==

== ENCOUNTER → 2020-04-13 | Outpatient (CLI) | payer BC ==
[2020-04-13 09:15] LABS: COLLECTION METHOD CLEAN CATCH
[2020-04-13 09:21] LABS: BASO % 0.2 % (0.0-2.0); EOS # 0.1 (0.0-0.7); GRAN # 5.8 (1.4-6.5); GRAN % 64.9 % (42.2-75.2); HEMATOCRIT 38.8 % (37.0-47.0); HEMOGLOBIN 12.7 g/dl (12.5-16.0); LYMPH # 2.2 (1.2-3.4); LYMPH % 24.3 % (20.0-51.0); MEAN CELL VOLUME 91 fl (80.0-100.0); MEAN CORPUSCULAR HEMOGLOBIN 30 pg (27.0-31.0); MEAN CORPUSCULAR HGB CONC 33 g/dl (33.0-37.0); MONO # 0.8 (0.1-0.6); MONO % 9.4 % (1.7-9.3); PLATELET COUNT 246 K/mm3 (130-400); RED BLOOD COUNT 4.25 M/mm3 (4.10-5.30); REDCELL DISTRIBUTION WIDTH-CV 12.5 % (11.5-14.5)
[2020-04-13 09:24] LABS: INR 1.1 (0.8-3.0); PROTHROMBIN TIME 12.6 SECONDS (9.7-12.8)
[2020-04-13 09:26] LABS: PH 7 (5-8); SQUAMOUS EPITHELIAL 0-2 /hpf; URINE APPEARANCE Hazy; URINE BACTERIA None Seen /hpf; URINE BILIRUBIN Negative (NEGATIVE); URINE BLOOD 2+ (NEGATIVE); URINE COLOR Yellow; URINE GLUCOSE Negative (NEGATIVE); URINE KETONE Negative (NEGATIVE); URINE LEUKOCYTE ESTERASE Negative (NEGATIVE); URINE NITRATE Negative (NEGATIVE); URINE PROTEIN(semi-quant) Negative (NEGATIVE); URINE RBC 0-2 /hpf; URINE UROBILINOGEN Negative (NEGATIVE); URINE WBC 0-2 /hpf
[2020-04-13 09:38] LABS: ALBUMIN 4.2 gm/dL (3.5-5.0); BILIRUBIN,TOTAL 0.3 mg/dL (0.0-1.0); CALCIUM 9.2 mg/dL (8.4-10.2); CREATININE, serum 0.59 (0.52-1.25); TOTAL PROTEIN 7.1 gm/dL (6.4-8.2)
== END ==
LOC: COL.LAB 08:46
DX: Z01.818 Encounter for other preprocedural examination (principal)

== ENCOUNTER → 2020-04-18 | Emergency (ER) | payer BC ==
[~2020-04-18] VITALS: Ht 165.1 cm; Wt 70.5 kg
[2020-04-18 18:03] VITALS: BP 117/76; PULSE 100; TEMP 97.7
== END ==
LOC: COL.ER 17:23
DX: M25.522 Pain in left elbow (principal); Z53.21 Procedure and treatment not carried out due to patient leaving prior to being seen by health care provider

== ENCOUNTER 2020-04-21 23:06 | Emergency (ER) | payer BC ==
[~2020-04-21] VITALS: Ht 165.1 cm; Wt 70.5 kg
[2020-04-21 23:13] VITALS: BP 90/66; PULSE 89; TEMP 97.5
== END 2020-04-22 01:00 | disposition home or self-care (01) ==
LOC: COL.ER 23:06
DX: G89.18 Other acute postprocedural pain (principal); M79.602 Pain in left arm; Z88.8 Allergy status to other drugs, medicaments and biological substances

== ENCOUNTER 2020-05-14 08:58 | Outpatient (RCR) | payer BC | END 2020-06-01 | disposition home or self-care (01) | LOC: WSOT | DX: G56.02 Carpal tunnel syndrome, left upper limb (principal); G56.22 Lesion of ulnar nerve, left upper limb; M77.12 Lateral epicondylitis, left elbow ==

== ENCOUNTER 2020-07-03 20:31 | Emergency (ER) | payer BC ==
[~2020-07-03] VITALS: Ht 165.1 cm; Wt 65.0 kg
[2020-07-03 20:49] VITALS: TEMP 98.1
[2020-07-03] MEDS ORDERED: PROAIR RES117 MCG/Ac IH (21:18)
[2020-07-03] MEDS ORDERED: MAXALT10 MG (21:21)
[2020-07-03] MEDS ORDERED: SINGULAIR 110 MG/TAB PO (21:25)
[2020-07-03] MEDS ORDERED: VALIUM 10MG10 MG/TAB PO (21:26)
[2020-07-03] MEDS ORDERED: FIORINAL 325 MG1 CAP PO (21:27)
[2020-07-03 22:08] LABS: BASO % 0.3 % (0.0-2.0); EOS # 0.1 (0.0-0.7); EOS % 0.5 % (0-4.0); GRAN % 54.9 % (42.2-75.2); HEMATOCRIT 37.3 % (37.0-47.0); HEMOGLOBIN 12.1 g/dl (12.5-16.0); LYMPH % 32.8 % (20.0-51.0); MEAN CELL VOLUME 92 fl (80.0-100.0); MEAN CORPUSCULAR HEMOGLOBIN 30 pg (27.0-31.0); MEAN CORPUSCULAR HGB CONC 32 g/dl (33.0-37.0); MEAN PLATELET VOLUME 10.4 fl (7.4-10.4); MONO % 11.3 % (1.7-9.3); PLATELET COUNT 269 K/mm3 (130-400); RED BLOOD COUNT 4.07 M/mm3 (4.10-5.30); REDCELL DISTRIBUTION WIDTH-CV 15.3 % (11.5-14.5)
[2020-07-03 22:21] LABS: ALBUMIN 4.7 gm/dL (3.5-5.0); BILIRUBIN,TOTAL 0.3 mg/dL (0.0-1.0); C-REACTIVE PROTEIN 2.2 mg/dL (0.0-0.9); CALCIUM 9.7 mg/dL (8.4-10.2); CREATININE, serum 0.57 (0.52-1.25); POTASSIUM 4.1 mmol/L (3.4-5.0); TOTAL PROTEIN 7.9 gm/dL (6.4-8.2)
[2020-07-03 22:32] LABS: COLLECTION METHOD CLEAN CATCH
[2020-07-03 22:37] LABS: MUCOUS Present /lpf; PH 7 (5-8); SQUAMOUS EPITHELIAL None Seen /hpf; URINE APPEARANCE Hazy; URINE BACTERIA None Seen /hpf; URINE BILIRUBIN Negative (NEGATIVE); URINE BLOOD 1+ (NEGATIVE); URINE COLOR Straw; URINE GLUCOSE Negative (NEGATIVE); URINE KETONE Negative (NEGATIVE); URINE LEUKOCYTE ESTERASE Negative (NEGATIVE); URINE NITRATE Negative (NEGATIVE); URINE PROTEIN(semi-quant) Negative (NEGATIVE); URINE RBC 0-2 /hpf; URINE UROBILINOGEN Negative (NEGATIVE); URINE WBC 0-2 /hpf
[2020-07-04 01:50] VITALS: BP 136/92; PULSE 97
== END 2020-07-04 01:50 | disposition home or self-care (01) ==
LOC: COL.ER 20:31
PROVIDERS: Nurse Practitioner Primary Care
DX: R53.81 Other malaise (principal); R42 Dizziness and giddiness; R53.83 Other fatigue; F41.9 Anxiety disorder, unspecified; F32.9 Major depressive disorder, single episode, unspecified; F90.9 Attention-deficit hyperactivity disorder, unspecified type; Z90.49 Acquired absence of other specified parts of digestive tract; Z90.89 Acquired absence of other organs; Z88.8 Allergy status to other drugs, medicaments and biological substances; Z79.51 Long term (current) use of inhaled steroids; Z79.82 Long term (current) use of aspirin

== ENCOUNTER 2020-07-10 20:39 | Emergency (ER) | payer BC ==
[~2020-07-10] VITALS: Ht 165.1 cm; Wt 55.0 kg
[~2020-07-10 20:39] MED LIST changes: +FIORINAL 325 MG1 CAP PO; +MAXALT10 MG; +PROAIR RES117 MCG/Ac IH; +SINGULAIR 110 MG/TAB PO; +VALIUM 10MG10 MG/TAB PO
[2020-07-10 20:46] VITALS: TEMP 98.6
[2020-07-10 21:27] LABS: COLLECTION METHOD CLEAN CATCH
[2020-07-10 21:32] LABS: MUCOUS Present /lpf; PH 8 (5-8); SQUAMOUS EPITHELIAL 0-2 /hpf; URINE APPEARANCE Clear; URINE BACTERIA Rare /hpf; URINE BILIRUBIN Negative (NEGATIVE); URINE BLOOD Negative (NEGATIVE); URINE COLOR Yellow; URINE GLUCOSE Negative (NEGATIVE); URINE KETONE Negative (NEGATIVE); URINE LEUKOCYTE ESTERASE Negative (NEGATIVE); URINE NITRATE Negative (NEGATIVE); URINE PROTEIN(semi-quant) Negative (NEGATIVE); URINE RBC 0-2 /hpf; URINE UROBILINOGEN Negative (NEGATIVE)
[2020-07-10 22:05] LABS: BASO % 0.7 % (0.0-2.0); EOS # 0.1 (0.0-0.7); EOS % 0.9 % (0-4.0); GRAN # 4.2 (1.4-6.5); GRAN % 72.3 % (42.2-75.2); HEMATOCRIT 37.3 % (37.0-47.0); HEMOGLOBIN 12.1 g/dl (12.5-16.0); LYMPH # 0.6 (1.2-3.4); LYMPH % 9.8 % (20.0-51.0); MEAN CELL VOLUME 93 fl (80.0-100.0); MEAN CORPUSCULAR HEMOGLOBIN 30 pg (27.0-31.0); MEAN CORPUSCULAR HGB CONC 32 g/dl (33.0-37.0); MEAN PLATELET VOLUME 10.4 fl (7.4-10.4); MONO # 0.9 (0.1-0.6); MONO % 16.1 % (1.7-9.3); PLATELET COUNT 260 K/mm3 (130-400); RED BLOOD COUNT 4.03 M/mm3 (4.10-5.30); REDCELL DISTRIBUTION WIDTH-CV 14.7 % (11.5-14.5)
[2020-07-10 22:16] LABS: ALBUMIN 4.7 gm/dL (3.5-5.0); BILIRUBIN,TOTAL 0.3 mg/dL (0.0-1.0); CALCIUM 9.5 mg/dL (8.4-10.2); CREATININE, serum 0.54 (0.52-1.25); TOTAL PROTEIN 7.7 gm/dL (6.4-8.2)
[2020-07-10 22:45] VITALS: BP 116/70; PULSE 88
== END 2020-07-10 22:45 | disposition home or self-care (01) ==
LOC: COL.ER 20:39
PROVIDERS: Family Medicine
DX: U07.1 COVID-19 (principal); F90.9 Attention-deficit hyperactivity disorder, unspecified type; G43.909 Migraine, unspecified, not intractable, without status migrainosus; Z88.8 Allergy status to other drugs, medicaments and biological substances; Z79.82 Long term (current) use of aspirin

== ENCOUNTER 2020-08-07 16:50 | Emergency (ER) | payer BC ==
[~2020-08-07] VITALS: Ht 165.1 cm; Wt 65.0 kg
[2020-08-07 17:02] VITALS: TEMP 98.8
[2020-08-07 18:08] LABS: ALANINE AMINOTRANSFERASE 13 U/L (4-34); ALBUMIN 4.7 gm/dL (3.5-5.0); ALKALINE PHOSPHATASE 56 U/L (50-136); ANION GAP 10 mmol/L (7-16); AST,SGOT 17 U/L (15-37); BILIRUBIN,TOTAL 0.3 mg/dL (0.0-1.0); BLOOD UREA NITROGEN 9 mg/dL (7-17); CALCIUM 9.7 mg/dL (8.4-10.2); CARBON DIOXIDE 25 mmol/L (22-30); CHLORIDE 106 mmol/L (98-107); CREATININE, serum 0.55 (0.52-1.25); GLUCOSE 127 mg/dL (74-106); POTASSIUM 4.1 mmol/L (3.4-5.0); SODIUM 140 mmol/L (137-145); TOTAL PROTEIN 8.4 gm/dL (6.4-8.2)
[2020-08-07 18:11] LABS: BASO % 0.3 % (0.0-2.0); EOS % 0.1 % (0-4.0); GRAN # 6.7 (1.4-6.5); GRAN % 71.5 % (42.2-75.2); HEMATOCRIT 39.8 % (37.0-47.0); HEMOGLOBIN 13.1 g/dl (12.5-16.0); MEAN CELL VOLUME 93 fl (80.0-100.0); MEAN CORPUSCULAR HEMOGLOBIN 31 pg (27.0-31.0); MEAN CORPUSCULAR HGB CONC 33 g/dl (33.0-37.0); MEAN PLATELET VOLUME 10.6 fl (7.4-10.4); MONO # 0.7 (0.1-0.6); MONO % 6.9 % (1.7-9.3); PLATELET COUNT 279 K/mm3 (130-400); RED BLOOD COUNT 4.27 M/mm3 (4.10-5.30); REDCELL DISTRIBUTION WIDTH-CV 14.1 % (11.5-14.5)
[2020-08-07 18:20] LABS: TROPONIN-I < 0.012 ng/mL (0.000-0.035)
[2020-08-07 19:02] LABS: COLLECTION METHOD CLEAN CATCH
[2020-08-07 19:29] LABS: PH 7 (5-8); SQUAMOUS EPITHELIAL 0-2 /hpf; URINE APPEARANCE Clear; URINE BACTERIA Rare /hpf; URINE BILIRUBIN Negative (NEGATIVE); URINE BLOOD Negative (NEGATIVE); URINE COLOR Straw; URINE GLUCOSE Negative (NEGATIVE); URINE KETONE Negative (NEGATIVE); URINE LEUKOCYTE ESTERASE Negative (NEGATIVE); URINE NITRATE Negative (NEGATIVE); URINE PROTEIN(semi-quant) Negative (NEGATIVE); URINE RBC 0-2 /hpf; URINE UROBILINOGEN Negative (NEGATIVE)
[2020-08-07 21:22] VITALS: BP 138/98; PULSE 110
== END 2020-08-07 21:22 | disposition home or self-care (01) ==
LOC: COL.ER 16:50
PROVIDERS: Physician Assistant
DX: R53.81 Other malaise (principal); R06.02 Shortness of breath; Z86.16 Personal history of COVID-19; F32.9 Major depressive disorder, single episode, unspecified; F41.9 Anxiety disorder, unspecified; F90.9 Attention-deficit hyperactivity disorder, unspecified type; Z88.8 Allergy status to other drugs, medicaments and biological substances; Z79.82 Long term (current) use of aspirin
CPT/HCPCS: J2060; J7120

== ENCOUNTER 2020-08-11 21:14 | Inpatient (IN) | payer BC ==
[~2020-08-11] VITALS: Ht 165.1 cm; Wt 66.4 kg
[2020-08-11 22:06] LABS: BASO % 0.3 % (0.0-2.0); EOS # 0.1 (0.0-0.7); EOS % 0.5 % (0-4.0); GRAN # 7.6 (1.4-6.5); GRAN % 68.2 % (42.2-75.2); HEMATOCRIT 40.3 % (37.0-47.0); LYMPH # 2.4 (1.2-3.4); LYMPH % 21.2 % (20.0-51.0); MEAN CELL VOLUME 96 fl (80.0-100.0); MEAN CORPUSCULAR HEMOGLOBIN 31 pg (27.0-31.0); MEAN CORPUSCULAR HGB CONC 32 g/dl (33.0-37.0); MEAN PLATELET VOLUME 10.7 fl (7.4-10.4); MONO # 1.1 (0.1-0.6); MONO % 9.5 % (1.7-9.3); PLATELET COUNT 293 K/mm3 (130-400); RED BLOOD COUNT 4.22 M/mm3 (4.10-5.30)
[2020-08-11 22:13] LABS: COLLECTION METHOD CLEAN CATCH
[2020-08-11 22:18] LABS: ALBUMIN 4.7 gm/dL (3.5-5.0); BILIRUBIN,TOTAL 0.3 mg/dL (0.0-1.0); C-REACTIVE PROTEIN 1.3 mg/dL (0.0-0.9); CALCIUM 9.6 mg/dL (8.4-10.2); CREATININE, serum 0.53 (0.52-1.25); MAGNESIUM 2.1 mg/dL (1.6-2.3); POTASSIUM 4.1 mmol/L (3.4-5.0); TOTAL PROTEIN 7.8 gm/dL (6.4-8.2)
[2020-08-11 22:20] LABS: PH 6 (5-8); URINE APPEARANCE Cloudy; URINE BACTERIA Rare /hpf; URINE BILIRUBIN Negative (NEGATIVE); URINE BLOOD Negative (NEGATIVE); URINE COLOR Yellow; URINE GLUCOSE Negative (NEGATIVE); URINE KETONE Negative (NEGATIVE); URINE LEUKOCYTE ESTERASE Negative (NEGATIVE); URINE NITRATE Negative (NEGATIVE); URINE PROTEIN(semi-quant) Negative (NEGATIVE); URINE RBC 0-2 /hpf; URINE UROBILINOGEN Negative (NEGATIVE)
[2020-08-11 22:45] LABS: THYROID STIMULATING HORMONE 1.93 uIU/mL (0.465-4.680)
[2020-08-11 22:46] LABS: ERYTHROCYTE SEDIMENTATION RATE 11 mm/hr (0-20)
[2020-08-12] VITALS (377 sets, daily range): BP systolic 135–144; BP diastolic 92–103; PULSE 87–118; TEMP 98.3–98.5; O2SAT 71–100
[2020-08-12] MEDS ORDERED: ZANAFLEX 4MG TAB4 MG PO (03:40)
[2020-08-12] MEDS ORDERED: FLONASEALLERGY NS (04:08)
[2020-08-12] MEDS ORDERED: ZOFRAN ODT4 MG PO (04:09)
--- NOTE | 2020-08-12 04:34 | NUR ---
Admitted to medical floor from ER, VSS, DX weakness, numbness, tingling, r/o jana fagan,,INT to left AC, understands to call for questions/concerns,, will call for assistance up to bathroom-- Myesha BARKLEY will be here to write orders
--- NOTE | 2020-08-12 06:25 | NUR ---
Pt called and stated she is having a hard time breathing- put 3 L/nc on patient, sats 98%, pt diaphoretic, hands and feet cool to touch, B/P 145/87, heart rate 102, resp14/minute,, Pt states she is numb now from the neck down, unable to do hand grasps/or move feet-- cant feel me touching her arms/legs-- hard to keep her eyes open, states feels like she is going to pass out-- called Myesha BARKLEY--
--- NOTE | 2020-08-12 06:30 | NUR ---
Myesha at patient bedside assessing patient- pt did states she feels she is getting a migraine at this time-- Myesha ordered some IV meds and IV fluids - stayed with patient--
--- NOTE | 2020-08-12 06:55 | NUR ---
Did talk with Jane again about pts condition- pt states haed to swallow now, unable to move her head-- o2 sats remains 98% on 3 L/nc-- will transfer to ICU
--- NOTE | 2020-08-12 06:56 | NUR ---
Did get order from Myesha BARKLEY to not give the Benadryl and Reglan at this time- Order was from Myesha BARKLEY to transfer to ICU.
[2020-08-12 07:09] LABS: BASO % 0.3 % (0.0-2.0); EOS # 0.1 (0.0-0.7); EOS % 0.5 % (0-4.0); GRAN # 7.8 (1.4-6.5); GRAN % 69.3 % (42.2-75.2); HEMATOCRIT 42.6 % (37.0-47.0); HEMOGLOBIN 13.9 g/dl (12.5-16.0); LYMPH # 2.3 (1.2-3.4); LYMPH % 20.6 % (20.0-51.0); MEAN CELL VOLUME 95 fl (80.0-100.0); MEAN CORPUSCULAR HEMOGLOBIN 31 pg (27.0-31.0); MEAN CORPUSCULAR HGB CONC 33 g/dl (33.0-37.0); MEAN PLATELET VOLUME 11.4 fl (7.4-10.4); MONO % 8.9 % (1.7-9.3); PLATELET COUNT 251 K/mm3 (130-400); REDCELL DISTRIBUTION WIDTH-CV 14.1 % (11.5-14.5)
--- NOTE | 2020-08-12 07:15 | NUR ---
Transferred to ICU at this time-- report given to ICU nurse,, called by Libra KEMP and informed of patients condition and transfer to ICU.
--- NOTE | 2020-08-12 07:30 | NUR ---
Report received from JUSTO Benitez. Upon rounding on patient called hospitalist and tobacco warehouse manager and transferred to the ICU. Called and notified him of transfer and pt status.
[2020-08-12 08:34] LABS: CALCIUM 9.7 mg/dL (8.4-10.2); CREATININE, serum 0.45 (0.52-1.25); POTASSIUM 4.1 mmol/L (3.4-5.0)
--- NOTE | 2020-08-12 09:53 | NUR ---
VC IS 3.8L, MARGINAL PT EFFORT PRODUCED.
[2020-08-12 11:27] LABS: HIV 1/2 Antibodies Non-Reactive; HIV-1p24 Antigen Non-Reactive
--- NOTE | 2020-08-12 14:50 | NUR ---
PT requested to get up and go to the bathroom. PT states "I feel like I can get up, I feel better". Physical therapy called to work with patient as this RN did not feel it was safe to try with assistance of one. Biju, from physical therapy helped patient stand and patient was able to take a couple steps away from bed. PT heart rate climbed to the 130s-140s and PT stated "I feel like my feet are becoming numb again". PT takes the two steps back to bed and is helped into a lying postion. Heart rate decreases to 110 as it was prior to movement.
[2020-08-12 16:21] LABS: CSF MONONUCLEAR 0 % (70-100); CSF POLYMORPHONUCLEAR 100 % (0-6); CSF RBC 0 /mm3 (0-0)
[2020-08-12 16:52] LABS: GLUCOSE,CSF 55 mg/dL (40-70)
[2020-08-12 17:12] LABS: CSF APPEARANCE CLEAR; CSF COLOR COLORLESS
--- NOTE | 2020-08-12 19:29 | NUR ---
Shift report given to JUSTO Price. Care relinquished at this time
--- NOTE | 2020-08-12 20:30 | NUR ---
SUSAN Snyder notified pt's continued migrane rated at 5/10 and inability to sleep from symptoms
--- NOTE | 2020-08-12 21:27 | NUR ---
ANGELIKA-ICU physican notified of pt's continued migrane and inability to sleep d/t symptoms
--- NOTE | 2020-08-12 22:43 | NUR ---
Ice pack wrapped in linen applied to back of neck from neck discomfort 4/10 rated.
[2020-08-13] VITALS (264 sets, daily range): BP systolic 114–146; BP diastolic 75–94; PULSE 82–99; TEMP 97.8–98.8; O2SAT 87–100
[2020-08-13 05:31] LABS: BASO % 0.2 % (0.0-2.0); EOS % 0.4 % (0-4.0); GRAN # 6.7 (1.4-6.5); GRAN % 68.6 % (42.2-75.2); HEMATOCRIT 38.8 % (37.0-47.0); HEMOGLOBIN 12.5 g/dl (12.5-16.0); MEAN CELL VOLUME 95 fl (80.0-100.0); MEAN CORPUSCULAR HEMOGLOBIN 31 pg (27.0-31.0); MEAN CORPUSCULAR HGB CONC 32 g/dl (33.0-37.0); MEAN PLATELET VOLUME 10.6 fl (7.4-10.4); MONO % 10.4 % (1.7-9.3); PLATELET COUNT 262 K/mm3 (130-400); RED BLOOD COUNT 4.07 M/mm3 (4.10-5.30)
[2020-08-13 05:42] LABS: CALCIUM 8.9 mg/dL (8.4-10.2); CREATININE, serum 0.48 (0.52-1.25)
--- NOTE | 2020-08-13 07:00 | NUR ---
REPORT RECEIVED FROM DOM KEMP. PT RESTING WITH LIGHTS OFF. PT HAS 24HR URINE TO BE COMPLETED AT 1000. VSS. WILL CONTINUE TO MONITOR.
--- NOTE | 2020-08-13 10:30 | NUR ---
REPORT CALLED TO NOAH KEMP. ALL QUESITONS ANSWERED. PT WHEELED UP TO ROOM 351. OT ACCOMPANIED AND HELP PT TO BATHROOM. NOAH NOTIFIED OF PT'S ARRIVAL.
--- NOTE | 2020-08-13 11:38 | NUR ---
Plan is to return home with Jeramy [phone]. Patient reports that she resides in [place], [place], Patient shares that her father Yamil Mccartney is secondary contact . Patient reports that she has a walker but not other DME. Patient shares that she does not have a DPOA and will speak with her spouse. Patient shares that she is not using any skilled or home services and is usually independent. Patient reports that she is in need of dietary or nurtion services and thinks that has played a part of her care. SW consulted dietary for patient. Will continue to follow care.
--- NOTE | 2020-08-13 13:18 | NUR ---
Mejia catheter discontinued per orders. Denies further needs at this time. Family at bedside.
--- NOTE | 2020-08-13 14:15 | NUR ---
Application Chemist in to see patient.
--- NOTE | 2020-08-13 14:54 | NUR ---
PATIENT SP02 99% ON RA. PATIENT STATES SHE FEELS BETTER NOW THAN IN A LONG TIME.
--- NOTE | 2020-08-13 15:31 | NUR ---
Patient up to restroom, voiding without difficulties.
--- NOTE | 2020-08-13 17:56 | NUR ---
Left message for Dr. Almanzar, call from TELE patient has 7 beat run of SVS. VSS; BP123/77, HR92. Patient was laying in bed and states she felt her heart "flutter". No further needs at this time.
--- NOTE | 2020-08-13 18:03 | NUR ---
Patient doing well throughout the day. Has been up to restroom with SBA, steady gait. Patient states that she is feeling much better today with increased mobility. Denies further needs at this time. Will report off to shift superintendent.
[2020-08-13 19:28] LABS: CALCIUM 9.1 mg/dL (8.4-10.2); CREATININE, serum 0.39 (0.52-1.25); POTASSIUM 3.8 mmol/L (3.4-5.0)
[2020-08-14 04:13] VITALS: BP 126/82; PULSE 101; TEMP 98.6
[2020-08-14 06:57] LABS: BASO % 0.4 % (0.0-2.0); EOS # 0.1 (0.0-0.7); EOS % 0.7 % (0-4.0); GRAN # 6.8 (1.4-6.5); HEMATOCRIT 38.3 % (37.0-47.0); HEMOGLOBIN 12.6 g/dl (12.5-16.0); LYMPH # 2.5 (1.2-3.4); LYMPH % 23.7 % (20.0-51.0); MEAN CELL VOLUME 94 fl (80.0-100.0); MEAN CORPUSCULAR HEMOGLOBIN 31 pg (27.0-31.0); MEAN CORPUSCULAR HGB CONC 33 g/dl (33.0-37.0); MEAN PLATELET VOLUME 11.2 fl (7.4-10.4); MONO % 9.9 % (1.7-9.3); PLATELET COUNT 247 K/mm3 (130-400); RED BLOOD COUNT 4.08 M/mm3 (4.10-5.30); REDCELL DISTRIBUTION WIDTH-CV 13.6 % (11.5-14.5)
[2020-08-14 07:05] LABS: CALCIUM 9.3 mg/dL (8.4-10.2); CREATININE, serum 0.43 (0.52-1.25); POTASSIUM 3.9 mmol/L (3.4-5.0)
[2020-08-14 07:52] VITALS: BP 139/86; PULSE 98; TEMP 98.9
--- NOTE | 2020-08-14 08:00 | NUR ---
Patient sitting up in bed. Alert and oriented x 3. Assessement complete. Denies pain at this time. Patient states she does not feel any numbness to extremities. States she feels a lot better this morning. Up to restroom with SBA, steady gait. Denies further needs at this time.
--- NOTE | 2020-08-14 10:16 | NUR ---
Contacted Dr. Flor patient HR up to 130's with ambulation, change tele alarm rate to 140, VORB. Notified Tele.
--- NOTE | 2020-08-14 10:50 | NUR ---
US in for Echo
[2020-08-14] MEDS ORDERED: VITAMIN B-2 100MG PO (10:51)
[2020-08-14 10:54] LABS: HSV 2 DNA PCR QUAL Not Detected (())
[2020-08-14 11:48] VITALS: BP 134/83; PULSE 104; TEMP 98
--- NOTE | 2020-08-14 13:27 | NUR ---
Discharge education provided to patient and spouse. Educated on post picc line removal care and when to call provider. Educated on new medication and follow up appointments. All questions answered. Patient out by wheelchair with medical staff and family.
[2020-08-15 15:46] LABS: CADMIUM BLOOD <0.2 ng/mL (<5.0); LEAD,SERUM** <1.0 mcg/dL (<5.0); MERCURY,SERUM <1 ng/mL (<10)
--- NOTE | 2020-08-18 13:52 | NUR ---
Nursing Consultant collaborated with Steph Palliative RN who advised patient has been struggling at home post discharge. SW contacted patient to follow up. Patient advised her father is here now to assist and that things are going a bit better. Patient advised she is in the process of getting set up with a primary care physician in [place] and feels this is the best plan of action for her. Patient states she will take her discharge folder to her first appointment. SW provided patient with contact information for Case Management if any other concerns arise.
[2020-08-20 12:53] LABS: URINE PORPHOBILINOGEN XXX
== END 2020-08-14 13:29 | disposition home or self-care (01) | DRG 92 ==
LOC: COL.ER 21:14 → ICU 08-12 01:16 → MEDICAL 08-12 01:16 → ICU 08-12 07:24 → MEDICAL 08-13 11:08
PROVIDERS: Family Medicine; Internal Medicine Cardiovascular Disease; Nurse Practitioner Family; Physician Assistant; Psychiatry & Neurology Neurology; Student in an Organized Health Care Education/Training Program; ADMIT Hospitalist
PROC: 009U3ZX Drainage of Spinal Canal, Percutaneous Approach, Diagnostic (ICD-10-PCS; principal; 2020-08-12)
PROC: 05HY33Z Insertion of Infusion Device into Upper Vein, Percutaneous Approach (ICD-10-PCS; 2020-08-12)
DX: R20.2 Paresthesia of skin (principal); I47.1 Supraventricular tachycardia; R53.1 Weakness; G43.909 Migraine, unspecified, not intractable, without status migrainosus; F90.9 Attention-deficit hyperactivity disorder, unspecified type; G47.00 Insomnia, unspecified; R13.10 Dysphagia, unspecified; R11.0 Nausea; F50.9 Eating disorder, unspecified; Z90.13 Acquired absence of bilateral breasts and nipples; Z90.49 Acquired absence of other specified parts of digestive tract; Z88.8 Allergy status to other drugs, medicaments and biological substances; Z86.16 Personal history of COVID-19
CPT/HCPCS: 99222-AI; 99232-AI; 99239; A4314; A9585; C1751; C1892; J1200; J2270; J2405; J2765; J3030; J7030